=== PATIENT | female | born 1970 | race Two or more races ===

== ENCOUNTER 2016-12-22 17:24 | Emergency (ER) | payer OTHER, SELFPAY ==
[~2016-12-22] VITALS: Ht 154.9 cm; Wt 64.0 kg
[2016-12-22 17:37] VITALS: BP 164/99
== END 2016-12-22 18:15 | disposition home or self-care (01) ==
LOC: ED 18:10
DX: K02.9 Dental caries, unspecified (principal); H65.02 Acute serous otitis media, left ear
CPT/HCPCS: 99283